=== PATIENT | female | born 1985 | race Caucasian/White ===

== ENCOUNTER 2021-07-15 18:09 | Emergency (ER) | payer OTHER ==
--- NOTE | 2021-07-15 18:54 | EDM.PDOC ---
ED HPI GENERAL MEDICAL PROBLEM - General Chief Complaint: Respiratory Problem Stated Complaint: SINUS INFECTION Time Seen by Provider: 07/15/21 18:51 - History of Present Illness INITIAL COMMENTS - FREE TEXT/NARRATIVE: 36-year-old female presents to the emergency room with what she believes is a sinus infection. Patient's had 3-4 history of in season increasing sinus pressure and congestion. She has an occasional cough from postnasal drip. Her symptoms seem to be much worse on the left side. She is not aware of any fevers or chills. Patient has had the Covid vaccine. Patient has had intermittent sinus problems throughout her life but overall enjoys decent health. Treatments PROTECTIVE SERVICE SPECIALIST: Reports: Acetaminophen Anterior Frontal Headache Pain Score (Numeric/FACES): 7 - Related Data Allergies Allergy/AdvReac Type Severity Reaction Status Date / Time amoxicillin Allergy Severe Diarrhea Verified 07/15/21 18:45 morphine Allergy Severe Anaphylactic Verified 07/15/21 18:45 Shock Home Meds: Home Meds Cefdinir [Omnicef] 300 mg PO BID #20 cap 07/15/21 [Rx] Montelukast Sodium [Singulair] 5 mg PO 07/15/21 [History] Sertraline [Zoloft] 50 mg PO DAILY 07/15/21 [History] traZODone 50 mg PO BEDTIME 07/15/21 [History] ED ROS GENERAL - Review of Systems Review Of Systems: See Below Constitutional: Reports: No Symptoms HEENT: Reports: Rhinitis, Sinus Problem (Congestion left side). Denies: Vision Change Respiratory: Reports: No Symptoms, Shortness of Breath, Wheezing Cardiovascular: Reports: No Symptoms, Dyspnea on Exertion Endocrine: Reports: No Symptoms GI/Abdominal: Reports: No Symptoms : Reports: No Symptoms Musculoskeletal: Reports: No Symptoms Skin: Reports: No Symptoms Neurological: Reports: No Symptoms Psychiatric: Reports: No Symptoms ED EXAM, GENERAL - Physical Exam Exam: See Below Exam Limited By: No Limitations General Appearance: Alert, No Apparent Distress Eye Exam: Bilateral Eye: EOMI, Normal Inspection Ears: Normal External Exam, Normal Canal, Hearing Grossly Normal, Normal TMs Nose: Other (Maxillary sinus pressure is significant less so in the frontal sinuses all on the left side) Throat/Mouth: Normal Inspection, Normal Lips, Normal Teeth, Normal Gums, Normal Oropharynx, Normal Voice, No Airway Compromise, Other (All amount of sinus drainage noted) Head: Atraumatic, Normocephalic Neck: Normal Inspection, Supple, Non-Tender, Full Range of Motion. No: Lymphadenopathy (L), Lymphadenopathy (R) Respiratory/Chest: No Respiratory Distress, Lungs Clear, Normal Breath Sounds Course - Vital Signs Last Recorded V/S: Last Vital Signs Temp 36.9 C 07/15/21 18:33 Pulse 84 07/15/21 18:33 Resp 18 07/15/21 18:33 BP 140/91 H 07/15/21 18:33 Pulse Ox 95 07/15/21 18:33 Departure - Departure Time of Disposition: 19:11 Disposition: Home, Self-Care 01 Clinical Impression: Acute frontal sinusitis, unspecified, Acute maxillary sinusitis - Discharge Information Referrals: Lizzy Garrido MD [Primary Care Provider] - Forms: ED Department Discharge Additional Instructions: Return to the emergency room with any questions problems or worsening symptoms. You been started on antibiotic this is Omnicef, or cefdinir take 1 twice daily until all gone your first dose was given here in the emergency room the remaining have been sent to [facility] we can pick them up tomorrow morning. Do the sinus irrigation as we discussed. Follow-up with your regular physician in 1 week if needed. As we discussed sinus irrigation has been very beneficial for the situations. Sepsis Event Note (ED) - Evaluation Sepsis Screening Result: No Definite Risk - Focused Exam Vital Signs: Vital Signs Temp Pulse Resp BP Pulse Ox 07/15/21 18:33 36.9 C 84 18 140/91 H 95
[2021-07-15] MEDS ORDERED: Cefdinir 300 MG Cap PO ONE (19:10)
== END 2021-07-15 19:38 | disposition home or self-care (01) ==
LOC: JD.ED 18:09
DX: J01.10 Acute frontal sinusitis, unspecified (principal); J01.00 Acute maxillary sinusitis, unspecified; Z88.0 Allergy status to penicillin; Z88.5 Allergy status to narcotic agent
CPT/HCPCS: 99283; A9270

== ENCOUNTER 2021-09-29 13:12 | Emergency (ER) | payer OTHER ==
[2021-09-29] MEDS ORDERED: HYDROmorphone 1 MG/ML Syringe IM ONE (13:51)
[2021-09-29] MEDS ORDERED: Cyclobenzaprine 10 MG Tab PO ONE (13:52)
== END 2021-09-29 14:30 | disposition home or self-care (01) ==
LOC: JD.ED 13:12
DX: M77.8 Other enthesopathies, not elsewhere classified (principal); Z88.0 Allergy status to penicillin; Z88.5 Allergy status to narcotic agent; Z72.0 Tobacco use
CPT/HCPCS: 96372; 99283; A9270; J1170; 99284

== ENCOUNTER 2021-10-18 12:42 | Emergency (ER) | payer OTHER ==
[2021-10-18] MEDS ORDERED: Ketorolac 30 MG/ML SDV IVPUSH ONE (14:06)
[2021-10-18] MEDS ORDERED: diphenhydrAMINE 50 MG/ML SDV IVPUSH ONE (14:06)
[2021-10-18] MEDS ORDERED: Sodium Chloride 0.9% 1,000 ML IV ONE (14:06)
[2021-10-18] MEDS ORDERED: Metoclopramide 10 MG/2 ML SDV IVPUSH ONE (14:06)
== END 2021-10-18 16:40 | disposition home or self-care (01) ==
LOC: JD.ED 12:42
DX: G43.909 Migraine, unspecified, not intractable, without status migrainosus (principal); Z88.5 Allergy status to narcotic agent; Z88.0 Allergy status to penicillin; Z72.0 Tobacco use
CPT/HCPCS: 96374; 96375; 99283-25; 99284; J1200; J1885; J2765; J7030